=== PATIENT | female | born 1935 | race Caucasian/White ===

== ENCOUNTER 2016-07-18 01:15 | Inpatient (IN) | payer OTHER ==
[~2016-07-18] VITALS: Ht 149.9 cm; Wt 63.6 kg
[2016-07-18] MEDS ORDERED: KETOROLAC 15 MG INJ IV STA (01:50)
[2016-07-18] MEDS ORDERED: SOD CHLORIDE 0.9% 500 ML IV STA (01:50)
--- NOTE | 2016-07-18 02:35 | RADRPT ---
PROCEDURE: XR Chest. CLINICAL INDICATION: Trauma with concern for fracture. TECHNIQUE: Single frontal view of the chest was obtained COMPARISON: None FINDINGS: Cardiomegaly and atherosclerotic calcifications of the thoracic aorta. Hypoinflated lungs accentuat e pulmonary vascular markings. Mild left lung base atelectasis. Lungs are otherwise substantially c lear. There is no pleural effusion or pneumothorax. No evident fracture. Possible vascular calcification over the left lateral upper chest. This is n ot clear. IMPRESSION: 1. Mild left lung base atelectasis. 2. Lungs otherwise substantially clear. 3. No evident acute fracture. RPTAT: [facility] Physician Nigel Date Time Electronically viewed and signed by Physician Nigel on 07/18/2016 02:34 RS/
--- NOTE | 2016-07-18 02:38 | RADRPT ---
PROCEDURE: XR Left Hip. CLINICAL INDICATION: Trauma to the left hip with pain. TECHNIQUE: AP and frog lateral views of the left hip were performed. COMPARISON: None. FINDINGS: There is normal mineralization and alignment. No acute fracture or osseous lesion is identified. Possible remote fracture at the inferior pubic ra mus. If there is strong persistent concern for pelvic fracture consider CT examination. There are no significant degenerative changes in the hip. The soft tissues are unremarkable. Mild to moderate degenerative changes in the partially visualized left sacroiliac joint. IMPRESSION: 1. No acute fracture in the left hip. 2. If there is strong persistent concern for pelvic fracture consider CT correlation. RPTAT: [facility] Physician Nigel Date Time Electronically viewed and signed by Physician Nigel on 07/18/2016 02:38 RS/
--- NOTE | 2016-07-18 02:40 | RADRPT ---
PROCEDURE: XR Wrist. CLINICAL INDICATION: Pain. TECHNIQUE: Three views of the left wrist. COMPARISON: None available. FINDINGS: There is a nondisplaced intra-articular fracture of the distal radius. Moderate degenerative change s are noted at the base of the thumb. IMPRESSION: 1. Nondisplaced intra-articular fracture of the distal radius. RPTAT: HTAR .Perry Webb MD, MD Date Time Electronically viewed and signed by .Perry Webb MD, on 07/18/2016 02:39 .R/
[2016-07-18 03:00] LABS: ADD SCAN DIFF NO
[2016-07-18 03:01] LABS: BASOPHILS % 0.3 % (0.0-2.0); EOSINOPHILS % 0.3 % (0.0-7.0); HEMATOCRIT 29.4 % (37.0-47.0); HEMOGLOBIN 10.4 g/dl (12.0-16.0); LYMPHOCYTES # 0.7 10^3/ul (0.8-2.9); LYMPHOCYTES % 11.5 % (15.0-51.0); MEAN CORPUSCULAR HEMOGLOBIN 29.6 pg (29.0-33.0); MEAN CORPUSCULAR HGB CONC 35.4 g/dl (32.0-37.0); MEAN CORPUSCULAR VOLUME 83.8 fl (82.0-101.0); MEAN PLATELET VOLUME 9.8 fl (7.4-10.4); MONOCYTE # 0.5 10^3/ul (0.3-0.9); MONOCYTES % 7.9 % (0.0-11.0); NEUTROPHIL # 4.6 10^3/ul (1.6-7.5); NEUTROPHILS % 79.7 % (39.0-77.0); PLATELET COUNT 183 10^3/UL (140-415); RED BLOOD COUNT 3.51 10^6/ul (4.20-5.40); RED CELL DISTRIBUTION WIDTH 12.3 % (11.5-14.5); WHITE BLOOD COUNT 5.7 10^3/ul (4.8-10.8)
[2016-07-18] MEDS ORDERED: IBUP-1542 PO (03:03)
[2016-07-18 03:11] LABS: POTASSIUM 3.9 mmol/L (3.5-5.1)
--- NOTE | 2016-07-18 03:11 | ERD ---
ER Documentation Chief Complaint Date/Time DATE: 07/18/16 TIME: 03:07 Chief Complaint PT C/O LEFT SIDE/HIP PAIN S/P [facility] FALL EARLIER TODAY HPI 80-year-old woman brought in by EMS after mechanical fall while walking down the sidewalk. She injured her left hip and left wrist. She does recall the entire episode and denies loss of consciousness, she was able to ambulate after the fall without difficulty. She denies paresis or paresthesias, no head or neck injury, no chest pain or shortness of breath. ROS All systems reviewed and are negative except as per history of present illness. Medications Home Meds Active Scripts Ibuprofen* (Ibuprofen*) 600 Mg Tablet, 600 MG PO Q8 for PAIN AND/OR INFLAMMATION , #30 TAB Prov:MONA DE DIOS MD 07/18/16 PMhx/Soc Hypertension, arthritis History of Surgery: Yes (HYSTERECTOMY) Hx Cardiac Disorders: Yes (HTN) Hx Alcohol Use: No Hx Substance Use: No Hx Tobacco Use: No Smoking Status: Never smoker FmHx Family History: diabetes Physical Exam Vitals Vital Signs Date Time Temp Pulse Resp B/P Pulse Ox O2 Delivery O2 Flow Rate FiO2 07/18/16 05:10 76 18 139/76 97 07/18/16 03:00 73 18 138/79 100 Room Air 07/18/16 01:24 98.1 73 16 160/84 100 Physical Exam GENERAL: Well-developed, well-nourished, well-hydrated, in no apparent distress , looks nontoxic in appearance HEENT: Moist mucous membranes, pink conjunctiva, no cervical spine tenderness or step-off deformities, no goiter, no jaundice or icterus, extraocular movements intact without pain. No submandibular induration, and no pharyngeal erythema NEURO: Alert and oriented 3, cranial nerves II through XII intact bilaterally, pupils equal round reactive to light, no focal deficits or facial asymmetry, sensation intact distally Strength 5/5 in upper and lower extremities bilaterally CARDIAC: Regular rate and rhythm, no murmurs rubs or gallops LUNGS: Clear bilaterally no wheezing crackles or stridor ABDOMEN: Soft nontender, no guarding, no rigidity, no rebound, no psoas sign no obturator sign. Normoactive bowel sounds SKIN: Warm and dry to touch, positive soft tissue contusion to the left lateral hip and left dorsal wrist, no snuffbox tenderness to touch, sensation in the median, radial, ulnar nerves are intact and equal bilaterally EXTREMITIES: No clubbing cyanosis or edema, calves are bilaterally symmetrical, no Homans sign, no popliteal cord sign. Distal pulses equal and bilateral PSYCH: Normal affect without agitation or irritability Result Diagram: 07/18/1622907/18/16229 Results 24 hrs Laboratory Tests Test 07/18/16 02:30 White Blood Count 5.710^3/ul Red Blood Count 3.5110^6/ul Hemoglobin 10.4g/dl Hematocrit 29.4% Mean Corpuscular Volume 83.8fl Mean Corpuscular Hemoglobin 29.6pg Mean Corpuscular Hemoglobin Concent 35.4g/dl Red Cell Distribution Width 12.3% Platelet Count 76275^3/UL Mean Platelet Volume 9.8fl Neutrophils % 79.7% Lymphocytes % 11.5% Monocytes % 7.9% Eosinophils % 0.3% Basophils % 0.3% Nucleated Red Blood Cells % 0.0/100WBC Neutrophils # 4.610^3/ul Lymphocytes # 0.710^3/ul Monocytes # 0.510^3/ul Eosinophils # 0.010^3/ul Basophils # 0.010^3/ul Nucleated Red Blood Cells # 0.010^3/ul Sodium Level 139mmol/L Potassium Level 3.9mmol/L Chloride Level 101mmol/L Carbon Dioxide Level 28mmol/L Anion Gap 14 Blood Urea Nitrogen 20mg/dl Creatinine 1.11mg/dl Glucose Level 195mg/dl Calcium Level 9.7mg/dl Current Medications Medications (Trade) Dose Ordered Sig/Jer Route PRN Reason Start Time Stop Time Status Last Admin Dose Admin Sodium Chloride (NS) 500 ml @ 500 mls/hr Q1H STAT IV 07/18/16 01:50 07/18/16 02:49 DC 07/18/16 02:33 Ketorolac Tromethamine (Toradol) 15 mg ONCE STAT IV 07/18/16 01:50 07/18/16 01:52 DC 07/18/16 02:33 Procedures/[facility] IV line was established patient was placed on lunchroom monitor rhythm strip revealed a sinus rhythm at about 80 bpm with upright P and T waves. Patient was afebrile. I administered Toradol 50 mg IV with good response and 500 cc of normal saline intravenously. One AP view of the chest performed, read by me reveals no acute infiltrates, normal mediastinum, sharp costophrenic and cardiac borders, no air under the diaphragm. Otherwise unremarkable chest x-ray. X-ray left hip 2V Interpreted by me: Bones: No fracture Joints: No dislocation Foreign body: None X-ray left wrist 3V Interpreted by me: Scaphoid: Normal Bones: Positive intra-articular fracture of the distal radius with minimal displacement, no angulation Joints: No dislocation Foreign body: None CBC and electrolytes are normal, liver function tests are normal, urine analysis was negative for infection. Volar wrist splint was placed to the left upper extremity and wrapped with Mauricio elastic bandage for comfort and supportive measures. Splint Assessment: Neurovascularly intact post splint placement with good fit. X-ray left knee 3V Interpreted by me: Bones: No fracture Joints: No dislocation Foreign body: None Patient does have difficulty ambulating although I do not suspect that this requires inpatient management, we will obtain social work specialist evaluation for recommendations on outpatient management, referrals, and possibly facilitating a walker for her to use at home. CT scan of the left lower extremity has also been ordered to rule out fracture results are pending I will follow-up. Differential diagnoses considered, included but not limited to acute coronary syndrome, pulmonary embolism, aortic dissection, abdominal aortic aneurysm, sepsis, stroke, meningitis, encephalitis, pneumonia, appendicitis, cholecystitis , bowel obstruction, pyelonephritis, nephrolithiasis, cystitis, as well as metabolic, hematologic, and electrolyte abnormalities. As well as abscess, cellulitis, fractures, and dislocations. Patient feels much better at this time, and vital signs are normal, symptoms have improved. I did give strict instructions to return to the ED if symptoms continue or worsen, patient will otherwise follow-up with primary care physician. Patient understood instructions and agreed to plan. Departure Diagnosis: Primary Impression: Radius fracture Encounter type: initial encounter Radius location: distal Fracture type: closed Fracture morphology: other intra-articular Laterality: left Qualified Code: S52.572A - Other closed intra-articular fracture of distal end of left radius, initial encounter Additional Impression: Contusion, hip Encounter type: initial encounter Laterality: left Qualified Code: S70.02XA - Contusion of left hip, initial encounter Condition: Good Patient Instructions: Fracture, Wrist [General] MONA DE DIOS MD Jul 18, 2016 03:11
[2016-07-18 03:14] LABS: CREATININE 1.11 mg/dl (0.44-1.00)
[2016-07-18 03:15] LABS: CALCIUM 9.7 mg/dl (8.4-10.2)
--- NOTE | 2016-07-18 07:09 | RADRPT ---
PROCEDURE: XR Knee. CLINICAL INDICATION: Left knee pain. Rule out fracture. TECHNIQUE: 3 views of the left knee are available for review. COMPARISON: None available FINDINGS: Severe narrowing of the medial compartment of the left knee is seen. Moderate narrowing of the late ral compartment of the left knee is seen. There is narrowing of the patellofemoral joint as well. There is significant associated osteophyte formation as well. Findings are consistent with signific ant osteoarthritic degenerative changes of the left knee. No acute fracture or dislocation is seen. No radiopaque foreign body is identified. Alignment remains anatomic. Atherosclerotic vascular ca lcifications. Tiny suprapatellar joint effusion is present. IMPRESSION: 1. 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 2. No definite acute fracture or dislocation is seen. RPTAT: PP .Pa Crowe MD, Date Time Electronically viewed and signed by .Pa Crowe MD, on 07/18/2016 07:09 .B/
--- NOTE | 2016-07-18 07:14 | RADRPT ---
PROCEDURE: CT left hip without contrast CLINICAL INDICATION: Trauma TECHNIQUE: Spiral CT images through the left hip without the use of contrast. Multiplanar reconst ructions. The total exam CTDI equals 18.19 mGy and the total exam DLP equals 329.64 mGy-cm. . One or more of the following dose reduction techniques were used: automated exposure control, adjustment of the mA and/or kV according to patient size, or use of iterative reconstruction technique. COMPARISON: X-rays from earlier FINDINGS: Vacuum phenomena is seen in the left sacroiliac joint. Bone mineralization is decreased. There are nondisplaced fractures of the left superior and inferior pubic rami. No definite hip fracture. Th ere is mild degenerative change of the left hip with slight joint space narrowing. Small fat-contai liu left inguinal hernia. Arterial vascular calcification. Adductor musculature edema. IMPRESSION: Nondisplaced left superior inferior pubic rami fractures with adductor musculature edema. RPTAT: [facility]BE Physician Moris Date Time Electronically viewed and signed by So Villalobos Physician on 07/18/2016 07:14 LE/
[2016-07-18 07:58] VITALS: TEMP 98.1
[2016-07-18] MEDS ORDERED: ACETAMINOPHEN 325 MG TAB PO PRN ×2 (08:00→09:00)
[2016-07-18] MEDS ORDERED: ONDANSETRON 4 MG INJ IV PRN ×2 (08:00→09:00)
[2016-07-18 08:15] VITALS: BP 161/72; PULSE 63; RESP 17
[2016-07-18 08:55] VITALS: Ht 149.9 cm; Wt 63.6 kg
[2016-07-18] MEDS ORDERED: NACL 0.9% 3 ML SYG IV SCH (09:00)
[2016-07-18] MEDS ORDERED: MAGNESIUM HYDROXIDE 30ML CUP PO PRN (09:00)
[2016-07-18] MEDS ORDERED: HYDROCODONE/APAP (5/325) TAB PO PRN (09:00)
[2016-07-18] MEDS ORDERED: NA PHOSPHATE/BIPHOS 133 ML ENEMA PR PRN (09:00)
[2016-07-18] MEDS ORDERED: DOCUSATE SODIUM 100 MG CAP PO PRN (09:00)
[2016-07-18] MEDS ORDERED: NITROGLYCERIN (SL) 0.4 MG TAB SL PRN (09:00)
[2016-07-18] MEDS ORDERED: ALBUTEROL/IPRATROPIUM (NEB) 3 ML AMP HHN PRN (09:00)
[2016-07-18] MEDS ORDERED: hydrALAzine 20 MG INJ IV PRN (09:00)
[2016-07-18] MEDS ORDERED: LORAZEPAM 2 MG INJ IV PRN (09:00)
[2016-07-18] MEDS ORDERED: morphine 2 MG INJ IV PRN (09:00)
[2016-07-18 09:29] VITALS: BP 147/66; PULSE 77
[2016-07-18] MEDS: SOD CHLORIDE 0.45% 1,000 ML IV SCH ×2 (09:29→21:52)
[2016-07-18 09:52] LABS: ADD UMIC NO; URINE BILIRUBIN (Dip) NEGATIVE (NEGATIVE); URINE BLOOD (Dip) NEGATIVE (NEGATIVE); URINE COLOR LT. YELLOW (YELLOW); URINE GLUCOSE (Dip) NEGATIVE (NEGATIVE); URINE KETONES (Dip) NEGATIVE (NEGATIVE); URINE LEUKOCYTE ESTERASE (Dip) NEGATIVE (NEGATIVE); URINE NITRITE (Dip) NEGATIVE (NEGATIVE); URINE TOTAL PROTEIN (Dip) NEGATIVE (NEGATIVE); URINE UROBILINOGEN (Dip) 0.2 E.U./dL (0.1-1.0)
[2016-07-18 11:54] LABS: INR 1.01; PARTIAL THROMBOPLASTIN TIME 28.3 Sec (25.0-35.0); PROTIME 13.3 Sec (12.2-14.2)
[2016-07-18] MEDS ORDERED: GLUCOSE GEL 15 GRAM TUBE BUCCAL PRN (13:00)
[2016-07-18] MEDS ORDERED: GLUCOSE GEL 15 GRAM TUBE PO PRN ×2 (13:00)
[2016-07-18] MEDS ORDERED: DEXTROSE 50% 50 ML SYRINGE IV PRN ×2 (13:00)
[2016-07-18] MEDS ORDERED: GLUCAGON 1 MG INJ IM PRN (13:00)
[2016-07-18] MEDS ORDERED: SOLI10TA5 PO (13:46)
[2016-07-18] MEDS ORDERED: CHOL100062 PO (13:47)
[2016-07-18] MEDS ORDERED: CALC-459 PO (13:47)
[2016-07-18] MEDS ORDERED: FER325 PO (13:49)
[2016-07-18] MEDS ORDERED: CLON0.5T4 PO (13:49)
[2016-07-18] MEDS ORDERED: CLON-379 PO (13:49)
[2016-07-18] MEDS ORDERED: SITA25TA3 PO (13:50)
[2016-07-18] MEDS ORDERED: LISI-313 PO (13:51)
[2016-07-18] MEDS ORDERED: ATEN-51 PO (13:53)
[2016-07-18] MEDS ORDERED: CRES10 PO (13:55)
--- NOTE | 2016-07-18 14:57 | HP ---
DATE OF ADMISSION: 07/18/2016 CHIEF COMPLAINT: Left wrist and pelvic pain due to recent mechanical fall. HISTORY OF PRESENT ILLNESS: This is a 80-year-old female with reported past medical history of hype rtension and diabetes, hysterectomy, skin cancer and hernia repair who came to [facility] after suffering from a mechanical fall. According to the patient, [place] afternoon on 07/17/2016 when she lost her balance and fell. Sh e denied any loss of consciousness or any headaches or any chest pain or shortness of breath associa rambo with it. She simply states that she lost her balance and fell. She did fall on her left side a nd started to have progressive pain. She was still reported able to ambulate; however, despite pain . She did go to [facility] for further evaluation. Upon examination, she did hav e left wrist x-ray that did show nondisplaced intra-articular fracture of the distal radius. Hip x- ray did show shorter have no acute fracture in the left hip, but there was strong persistent suggest ion of pelvic fracture. She did have further delineation with CT scan of her pelvis. It did show a nondisplaced left superior and inferior pubic rami fracture with abductor musculature edema. Her l aboratory work, she was noted with acute kidney injury with creatinine at 1.11. She did also have s ome anemia which is being currently worked up. Currently, the patient is alert and oriented. No ap parent distress seen. She does still report having some left groin pain, likely secondary to the re cent fall. We will evaluate her for the aforementioned issues. MEDICAL AND SURGICAL HISTORY: 1. Hypertension. 2. Reported history of diabetes. 3. Hernia repair. 4. Hysterectomy. 5. Skin cancer (on right upper arm as well as leg). SOCIAL HISTORY: The patient denies any cigarette smoking, alcohol consumption or illicit drug use. FAMILY HISTORY: Noncontributory. ALLERGIES: NO KNOWN ALLERGIES. HOME MEDICATIONS: Ibuprofen 600 mg p.o. t.i.d. as needed for pain. REVIEW OF SYSTEMS: A 12-point review of systems obtained and is entirely negative except that menti oned in the history of present illness. PHYSICAL EXAMINATION VITAL SIGNS: Temperature is 98.1, pulse 63, respiratory rate is 17, blood pressure is 147/66 and pu lse ox is 96% on room air. GENERAL: This is a 80-year-old female, appears stated age, no apparent distress noted at this time . EYES: Pupils equal, round and reactive to light. Anicteric sclerae. NECK: Supple, nontender, no JVD. CARDIOVASCULAR: S1, S2 auscultated, regular rate. PULMONARY: Clear to auscultation bilaterally. No wheezing or rhonchi. ABDOMEN: Soft, nontender, nondistended. EXTREMITIES: No noted edema of bilateral lower extremities. There is seen in the left upper extrem ity in Mauricio wrap cast, dressing clean, dry and intact. NEUROLOGIC: Alert and oriented x3. LABORATORY DATA: WBC is 5.7, hemoglobin 10.4, hematocrit is 29.4 and platelets are 183. Sodium 139 , potassium 3.9, BUN is 20, creatinine is 1.11. IMAGIN. CT scan of the left hip did show nondisplaced left superior inferior pubic rami fractures with _ ____ musculature edema. 2. Left wrist x-ray on 07/18/2016 did show a nondisplaced intra-articular fracture of the distal ra dius. 3. Chest x-ray done on 07/18/2016 did show mild left lung base atelectasis but otherwise substantia lly clear. IMPRESSION AND PLAN: 1. Pubic nondisplaced rami fracture secondary to recent fall. Orthopedic surgeon consulted. We wi ll get sprayer operator consult for possible operative clearance. Of note, patient had no loss of consc iousness during fall. No need for syncope workup at this time. 2. Nondisplaced left radial fracture. Continue with at this time. 3. History of hypertension. Will provide with antihypertensives and adjust as needed. 4. History of diabetes. We will follow up on A1c. We will place on insulin sliding scale for now. ADMISSION PROCESS TIME: 40 minutes. Discussed plan of care with Dr. Silva. Dictated By: MEGAN CAREY NP for LUCY ACUÑA/EMILY Conf#: [id number] DID#: [id number] CC: LUCY SILVA;*EndCC*
[2016-07-18] MEDS ORDERED: INSULIN ASPART [NOVOLOG] 3 ML PEN SC SCH ×2 (17:55→21:00)
[2016-07-18 19:16] VITALS: BP 154/76; RESP 16
[2016-07-18] MEDS: INSULIN ASPART [NOVOLOG] 3 ML PEN SC SCH (20:47)
--- NOTE | 2016-07-18 20:58 | CONS ---
DATE OF ADMISSION: 07/18/2016 DATE OF CONSULTATION: 07/18/2016 TYPE OF CONSULTATION: Orthopedic surgical. HISTORY OF PRESENT ILLNESS: The patient is a 80-year-old female who was admitted through the emerge ncy room on 07/18/2016 when she came to the emergency room complaining of pain involving her left wr ist and left hip. According to the patient, she had a ground level fall on 07/17/2016 when she lost her balance at the sidewalk. At that time, she fell on her left side. Initially, she was able to get up and walk; however, she had increasing pain and she came to the emergency room. She is known to have hypertension, diabetes mellitus, history of hysterectomy, and history of hernia repair in the past. She also had a skin cancer on the right upper extremity and leg. PHYSICAL EXAMINATION: My examination revealed a 80-year-old female who was not in any acute distres s. Her left wrist is immobilized in a splint. There was no local tenderness or swelling around the left hip; however, there was a mild tenderness in the left groin. There was no abnormal rotation o r shortening of the left lower extremity. There was tenderness and swelling and limit of motion of the left wrist. IMAGING: X-rays of the hip and pelvis did not show any obvious fracture; however, CT scan was showi ng an undisplaced fracture involving left inferior pubic ramus. X-rays of the left wrist is showing a presence of fracture in the distal end of the left radius with out any displacement. DIAGNOSTIC IMPRESSION: 1. Pelvic fracture involving the left inferior pubic ramus, undisplaced, and possibly left superior pubic ramus, according to the CT report. 2. Fracture involving the distal end of the left radius, undisplaced. RECOMMENDATIONS FOR MANAGEMENT: 1. Immobilization of the left wrist in a cock-up wrist brace over the left wrist. 2. Mobilization with physical therapy with a walker and weightbearing as tolerated on the left lowe r extremity. 3. If the ambulation is well tolerated, then she can be discharged for further followup as an outpa tient. Dictated By: VELASQUEZ RODARTE/EMILY Conf#: [id number] DID#: [id number] CC: LUCY SILVA;*EndCC*
[2016-07-18] MEDS: clonAZEPAM 0.5 MG TAB PO SCH (21:54)
[2016-07-18] MEDS: SOLIFENACIN 5 MG TAB PO SCH (21:55)
[2016-07-18 23:01] VITALS: BP 143/68; PULSE 82; RESP 18
[2016-07-19] MEDS ORDERED: ACCU-CHEK XX SCH (02:00)
[2016-07-19] MEDS: ACCU-CHEK XX SCH (02:00)
[2016-07-19 05:25] LABS: ADD SCAN DIFF NO
[2016-07-19 05:29] LABS: BASOPHILS % 0.4 % (0.0-2.0); EOSINOPHILS # 0.2 10^3/ul (0.0-0.5); EOSINOPHILS % 3.2 % (0.0-7.0); HEMATOCRIT 28.5 % (37.0-47.0); HEMOGLOBIN 9.5 g/dl (12.0-16.0); LYMPHOCYTES % 20.2 % (15.0-51.0); MEAN CORPUSCULAR HEMOGLOBIN 28.4 pg (29.0-33.0); MEAN CORPUSCULAR HGB CONC 33.3 g/dl (32.0-37.0); MEAN CORPUSCULAR VOLUME 85.3 fl (82.0-101.0); MEAN PLATELET VOLUME 10.2 fl (7.4-10.4); MONOCYTE # 0.5 10^3/ul (0.3-0.9); MONOCYTES % 10.8 % (0.0-11.0); NEUTROPHIL # 3.1 10^3/ul (1.6-7.5); PLATELET COUNT 160 10^3/UL (140-415); RED BLOOD COUNT 3.34 10^6/ul (4.20-5.40); RED CELL DISTRIBUTION WIDTH 12.7 % (11.5-14.5); WHITE BLOOD COUNT 4.7 10^3/ul (4.8-10.8)
[2016-07-19 05:38] LABS: POTASSIUM 4.1 mmol/L (3.5-5.1)
[2016-07-19 05:40] LABS: CREATININE 1.26 mg/dl (0.44-1.00)
[2016-07-19 05:41] LABS: CALCIUM 8.8 mg/dl (8.4-10.2); PHOSPHORUS 3.4 mg/dl (2.5-4.9)
[2016-07-19 05:42] LABS: CHOL/HDL RATIO 3.8 RATIO; MAGNESIUM 1.9 mg/dl (1.7-2.5)
[2016-07-19] MEDS ORDERED: PANTOPRAZOLE 40 MG INJ IV SCH (06:00)
[2016-07-19 06:12] LABS: THYROID STIMULATING HORMONE 3.84 MIU/L (0.465-4.680)
[2016-07-19] MEDS: clonAZEPAM 0.5 MG TAB PO SCH ×3 (08:38→20:13)
[2016-07-19] MEDS: INSULIN ASPART [NOVOLOG] 3 ML PEN SC SCH ×4 (08:42→20:17)
[2016-07-19 08:54] VITALS: BP 134/65; RESP 18
[2016-07-19] MEDS ORDERED: SOLIFENACIN 5 MG TAB PO SCH (09:00)
--- NOTE | 2016-07-19 10:28 | PN ---
Date/Time of Note Date/Time of Note DATE: 07/19/16 TIME: 10:28 Assessment/Plan VTE Prophylaxis VTE Prophylaxis Intervention: SCD's Lines/Catheters IV Catheter Type (from Nrs): Saline Lock Urinary Cath still in place: No Assessment/Plan Assessment/Plan 1. Pubic nondisplaced rami fracture secondary to recent fall. Orthopedic surgeon consulted. We will get under cutter consult for possible operative clearance. Of note, patient had no loss of consciousness during fall. No need for syncope workup at this time. 2. Nondisplaced left radial fracture. Continue with at this time. 3. History of hypertension. Will provide with antihypertensives and adjust as needed. 4. History of diabetes. We will follow up on A1c. We will place on insulin sliding scale for now. Plan: still needs better pain control IVF NS x 1 liter ambulate home meds resume s/p ortho consult will follow up Subjective 24 Hr Interval Summary Free Text/Dictation still c/o left hip pain intractable with ambulatio, feelign dizzy with ambulation Exam/Review of Systems Vital Signs Vitals Vital Signs Date Time Temp Pulse Resp B/P Pulse Ox O2 Delivery O2 Flow Rate FiO2 07/19/16 08:54 98.0 68 18 134/65 94 07/18/16 23:01 Room Air Intake and Output 07/18/16 07/18/16 07/19/16 15:00 23:00 07:00 Intake Total 1050 ml 785 ml Output Total 500 ml 650 ml Balance 550 ml 135 ml Exam GENERAL: This is a 80-year-old female, appears stated age, no apparent distress noted at this time. EYES: Pupils equal, round and reactive to light. Anicteric sclerae. NECK: Supple, nontender, no JVD. CARDIOVASCULAR: S1, S2 auscultated, regular rate. PULMONARY: Clear to auscultation bilaterally. No wheezing or rhonchi. ABDOMEN: Soft, nontender, nondistended. EXTREMITIES: No noted edema of bilateral lower extremities. There is seen in the left upper extremity in Mauricio wrap cast, dressing clean, dry and intact. NEUROLOGIC: Alert and oriented x3. Results Result Diagram: 07/19/16 0425 07/19/16 0425 Results 24 hrs Laboratory Tests Test 07/18/16 11:25 07/18/16 17:12 07/18/16 20:46 07/19/16 04:25 Prothrombin Time 13.3 Prothrombin Time Ratio 1.0 INR International Normalized Ratio 1.01 Activated Partial Thromboplast Time 28.3 Bedside Glucose 171 132 White Blood Count 4.7 L Red Blood Count 3.34 L Hemoglobin 9.5 L Hematocrit 28.5 L Mean Corpuscular Volume 85.3 Mean Corpuscular Hemoglobin 28.4 L Mean Corpuscular Hemoglobin Concent 33.3 Red Cell Distribution Width 12.7 Platelet Count 160 Mean Platelet Volume 10.2 Neutrophils % 65.0 Lymphocytes % 20.2 Monocytes % 10.8 Eosinophils % 3.2 Basophils % 0.4 Nucleated Red Blood Cells % 0.0 Neutrophils # 3.1 Lymphocytes # 1.0 Monocytes # 0.5 Eosinophils # 0.2 Basophils # 0.0 Nucleated Red Blood Cells # 0.0 Sodium Level 136 Potassium Level 4.1 Chloride Level 105 Carbon Dioxide Level 28 Anion Gap 7 L Blood Urea Nitrogen 21 H Creatinine 1.26 H Glucose Level 172 Hemoglobin A1c 7.0 H Calcium Level 8.8 Phosphorus Level 3.4 Magnesium Level 1.9 Triglycerides Level 141 Cholesterol Level 124 LDL Cholesterol, Calculated 64 HDL Cholesterol 32 L Cholesterol/HDL Ratio 3.8 Thyroid Stimulating Hormone (TSH) 3.840 Test 07/19/16 08:07 Bedside Glucose 177 Medications Medications Current Medications Ondansetron HCl (Zofran Inj) 4 mg Q6H PRN IV NAUSEA AND/OR VOMITING; Start 07/18 at 09:00 Acetaminophen (Tylenol Tab) 650 mg Q6H PRN PO PAIN LEVEL 1-3 OR FEVER; Start at 09:00 Acetaminophen/ Hydrocodone Bitart ([place] (5/325)) 1 tab Q6H PRN PO MODERATE PAIN LEVEL 4-6 Last administered on 07/19/16t 05:32; Admin Dose 1 TAB; Start 07/18 at 09:00 Morphine Sulfate (morphine) 2 mg Q4H PRN IV SEVERE PAIN LEVEL 7-10; Start at 09:00 Docusate Sodium (Colace) 100 mg Q12H PRN PO CONSTIPATION; Start 07/18/16 at 09: 00 Magnesium Hydroxide (Milk Of Mag) 30 ml DAILY PRN PO CONSTIPATION; Start at 09:00 Sodium Biphosphate/ Sodium Phosphate (Fleet Enema) 133 ml DAILY PRN WI CONSTIPATION; Start 07/18/16 at 09:00 Pantoprazole (Protonix Iv) 40 mg DAILY@06 IV Last administered on 07/19/16 05: 26; Admin Dose 40 MG; Start 07/19/16 at 06:00 Lorazepam (Ativan) 0.5 mg Q6H PRN IV ANXIETY; Start 07/18/16 at 09:00 Hydralazine HCl (Apresoline) 10 mg Q6H PRN IV ELEVATED BLOOD PRESSURE; Start at 09:00 Clonidine (Catapres) 0.1 mg Q6H PRN PO ELEVATED BLOOD PRESSURE; Start 07/18/16 at 09:00 Nitroglycerin (Nitroglycerin (Sl Tab) 0.4 Mg) 1 tab Q5M PRN SL ANGINA; Start at 09:00 Miscellaneous Information 1 ea NOTE XX ; Start 07/18/16 at 13:00 Glucose (Glutose) 15 gm Q15M PRN PO DECREASED GLUCOSE; Start 07/18/16 at 13:00 Glucose (Glutose) 22.5 gm Q15M PRN PO DECREASED GLUCOSE; Start 07/18/16 at 13:00 Dextrose (D50w Syringe) 25 ml Q15M PRN IV DECREASED GLUCOSE; Start 07/18/16 at 13:00 Dextrose (D50w Syringe) 50 ml Q15M PRN IV DECREASED GLUCOSE; Start 07/18/16 at 13:00 Glucagon (Glucagen) 1 mg Q15M PRN IM DECREASED GLUCOSE; Start 07/18/16 at 13:00 Glucose (Glutose) 15 gm Q15M PRN BUCCAL DECREASED GLUCOSE; Start 07/18/16 at 13: 00 Diagnostic Test (Pha) (Accu-Chek) 1 ea 02 XX ; Start 07/19/16 at 02:00 Clonazepam (Klonopin) 0.5 mg TID PO Last administered on 07/19/16 08:38; Admin Dose 0.5 MG; Start 07/18/16 at 22:00 Clonidine (Catapres) 0.1 mg BID PO Last administered on 07/19/16 08:38; Admin Dose 0.1 MG; Start 07/18/16 at 22:00 Solifenacin (Vesicare) 10 mg HS PO Last administered on 4/2/17at 21:55; Admin Dose 10 MG; Start 07/18/16 at 22:00 CAMILLA BOUDREAUX MD Jul 19, 2016 10:28
[2016-07-19] MEDS: FERROUS SULFATE (EC) 325 MG TAB PO SCH (10:52)
[2016-07-19] MEDS: CHOLECALCIFEROL 1,000 UNIT TAB PO SCH (10:52)
[2016-07-19 10:53] VITALS: BP 111/59; PULSE 69
[2016-07-19] MEDS: ATENOLOL 25 MG TAB PO SCH (10:53)
[2016-07-19] MEDS: LISINOPRIL 5 MG TAB PO SCH (10:53)
[2016-07-19] MEDS ORDERED: SOD CHLORIDE 0.9% 1,000 ML IV SCH (11:00)
[2016-07-19] MEDS: IBUPROFEN 600 MG TAB PO SCH ×2 (14:00→20:52)
--- NOTE | 2016-07-19 14:02 | RADRPT ---
Echocardiogram Report Patient Name: TERRY LEAL Gender: Female Date: 1935 Study Date: 18-Jul-2016 Windows Application Developer: ANNE Location: I Ref. Physician: LUCY SILVA Quality: Adequate Procedures: Transthoracic echocardiogram with complete 2D, M-Mode, and Doppler examination. Indications: Chest Pain. 2D/M Mode Doppler Measurement Value Normal Ranges Measurement Value Normal Ranges AoR Diam MM 3.5 cm AV Peak [place] 1.2 m/sec LVIDd 2D 4.5 3.5 - 5.6 cm AV Peak PG 6.1 mmHg LVIDs 2D 2.7 2.1 - 4.1 cm LVOT Peak [place] 1.2 m/sec LVPWd 2D 1.1 0.6 - 1.1 cm LVOT Peak PG 5.3 mmHg IVSd 2D 1.1 0.6 - 1.1 cm MV E Peak [place] 0.6 m/sec EDV 2D 90.7 cm3 MV A Peak [place] 0.8 m/sec ESV 2D 20.6 cm3 MV E/A 0.8 LA Dimen 2D 3.4 2.3 - 4.0 cm MV Decel Time 205 msec MV Decel [place] 3 MV E/A 0.8 TR Peak [place] 1.4 m/sec TR Peak PG 8.0 mmHg PV Peak [place] 0.9 m/sec PV Peak PG 3.0 mmHg RVSP 11.0 mmHg Findings Left Ventricle: Normal left ventricular systolic function. Normal left ventricular cavity size. Normal left ventricular wall thickness. Ejection fraction is visually estimated at 6065 %. Tissue Doppler/Mitral Doppler indices are consistent with impaired relaxation (Stage I diastolic dysfunction). E/E`=8. Right Ventricle: Normal right ventricular size. Normal right ventricular systolic function. Left Atrium: The left atrium is normal in size. Right Atrium: The right atrium is normal in size. Atrial Septum: Normal atrial septum. Mitral Valve: Normal appearance and function of the mitral valve with trace physiologic regurgitation. Aortic Valve: No significant aortic stenosis or insufficiency. Aortic cusps appear mildly calcified. Tricuspid Valve: Normal appearance and function of the tricuspid valve with trace physiologic regurgitation. Estimated peak PA systolic pressure 11 mmHg. Pulmonic Valve: Normal pulmonic valve appearance. There is trace pulmonic regurgitation. Pericardium: Normal pericardium with no significant pericardial effusion. Aorta: Normal aortic root. IVC: Normal size and normal respiratory collapse consistent with normal right atrial pressure. Pulmonary Artery: Normal pulmonary artery size. Conclusions The left ventricle is normal in size and systolic function. Estimated left ventricular ejection fraction of 60-65%. Mild left ventricular diastolic dysfunction. Electronically Signed By: Gulshan Butler 19-Jul-2016 14:01:40 -0700 Patient Name: TERRY LEAL Study Date: 18-Jul-2016 [id number]
[2016-07-19 19:45] VITALS: BP 139/71; RESP 16
[2016-07-19] MEDS: SOLIFENACIN 5 MG TAB PO SCH (20:13)
[2016-07-20] MEDS: ACCU-CHEK XX SCH (02:00)
[2016-07-20 05:20] LABS: ADD SCAN DIFF NO
[2016-07-20 05:36] LABS: BASOPHILS % 0.4 % (0.0-2.0); EOSINOPHILS # 0.2 10^3/ul (0.0-0.5); EOSINOPHILS % 4.2 % (0.0-7.0); LYMPHOCYTES % 20.7 % (15.0-51.0); MEAN CORPUSCULAR HEMOGLOBIN 28.7 pg (29.0-33.0); MEAN CORPUSCULAR HGB CONC 33.3 g/dl (32.0-37.0); MEAN CORPUSCULAR VOLUME 86.2 fl (82.0-101.0); MEAN PLATELET VOLUME 10.4 fl (7.4-10.4); MONOCYTE # 0.4 10^3/ul (0.3-0.9); MONOCYTES % 9.1 % (0.0-11.0); NEUTROPHIL # 3.1 10^3/ul (1.6-7.5); NEUTROPHILS % 65.4 % (39.0-77.0); PLATELET COUNT 166 10^3/UL (140-415); RED BLOOD COUNT 3.48 10^6/ul (4.20-5.40); RED CELL DISTRIBUTION WIDTH 12.8 % (11.5-14.5); WHITE BLOOD COUNT 4.7 10^3/ul (4.8-10.8)
[2016-07-20] MEDS: IBUPROFEN 600 MG TAB PO SCH ×3 (06:00→21:21)
[2016-07-20 06:01] LABS: POTASSIUM 4.1 mmol/L (3.5-5.1)
[2016-07-20 06:04] LABS: CREATININE 1.21 mg/dl (0.44-1.00)
[2016-07-20 06:05] LABS: CALCIUM 9.4 mg/dl (8.4-10.2)
[2016-07-20] MEDS: PANTOPRAZOLE (EC) 40 MG TAB PO SCH (06:16)
[2016-07-20 07:54] VITALS: BP 169/77; RESP 18
[2016-07-20] MEDS: FERROUS SULFATE (EC) 325 MG TAB PO SCH (09:00)
[2016-07-20] MEDS: LISINOPRIL 5 MG TAB PO SCH (09:00)
[2016-07-20] MEDS: CHOLECALCIFEROL 1,000 UNIT TAB PO SCH (09:00)
[2016-07-20] MEDS: ATENOLOL 25 MG TAB PO SCH (09:00)
[2016-07-20] MEDS: INSULIN ASPART [NOVOLOG] 3 ML PEN SC SCH ×4 (09:05→20:18)
[2016-07-20] MEDS: clonAZEPAM 0.5 MG TAB PO SCH ×3 (09:05→20:18)
--- NOTE | 2016-07-20 17:09 | PN ---
Date/Time of Note Date/Time of Note DATE: 07/20/16 TIME: 17:07 Assessment/Plan VTE Prophylaxis VTE Prophylaxis Intervention: SCD's Lines/Catheters IV Catheter Type (from Nrs): Saline Lock Urinary Cath still in place: No Assessment/Plan Assessment/Plan 1. Pubic nondisplaced rami fracture secondary to recent fall. Orthopedic surgeon consulted. We will get time study statistician consult for possible operative clearance. Of note, patient had no loss of consciousness during fall. No need for syncope workup at this time. 2. Nondisplaced left radial fracture. Continue with at this time. 3. History of hypertension. Will provide with antihypertensives and adjust as needed. 4. History of diabetes. We will follow up on A1c. We will place on insulin sliding scale for now. Plan: still needs better pain control s/p 1liter NS yesterday S/p PT evaluation today, recommended to have SNF placement pain control case management consutl for SNF placement Subjective 24 Hr Interval Summary Free Text/Dictation doing ok, BP stable, Pt had a PT and she is recommended to have SNF placement Exam/Review of Systems Vital Signs Vitals Vital Signs Date Time Temp Pulse Resp B/P Pulse Ox O2 Delivery O2 Flow Rate FiO2 07/20/16 07:54 98.1 64 18 169/77 93 07/18/16 23:01 Room Air Intake and Output 07/19/16 07/19/16 07/20/16 15:00 23:00 07:00 Intake Total 1160 ml 660 ml Output Total 550 ml 950 ml Balance 610 ml -290 ml Exam GENERAL: This is a 80-year-old female, appears stated age, no apparent distress noted at this time. EYES: Pupils equal, round and reactive to light. Anicteric sclerae. NECK: Supple, nontender, no JVD. CARDIOVASCULAR: S1, S2 auscultated, regular rate. PULMONARY: Clear to auscultation bilaterally. No wheezing or rhonchi. ABDOMEN: Soft, nontender, nondistended. EXTREMITIES: No noted edema of bilateral lower extremities. There is seen in the left upper extremity in Mauricio wrap cast, dressing clean, dry and intact. NEUROLOGIC: Alert and oriented x3. Results Result Diagram: 07/20/16 0436 07/20/16 0436 Results 24 hrs Laboratory Tests Test 07/19/16 17:12 07/19/16 20:11 07/20/16 01:51 07/20/16 04:36 Bedside Glucose 144 186 182 White Blood Count 4.7 L Red Blood Count 3.48 L Hemoglobin 10.0 L Hematocrit 30.0 L Mean Corpuscular Volume 86.2 Mean Corpuscular Hemoglobin 28.7 L Mean Corpuscular Hemoglobin Concent 33.3 Red Cell Distribution Width 12.8 Platelet Count 166 Mean Platelet Volume 10.4 Neutrophils % 65.4 Lymphocytes % 20.7 Monocytes % 9.1 Eosinophils % 4.2 Basophils % 0.4 Nucleated Red Blood Cells % 0.0 Neutrophils # 3.1 Lymphocytes # 1.0 Monocytes # 0.4 Eosinophils # 0.2 Basophils # 0.0 Nucleated Red Blood Cells # 0.0 Sodium Level 138 Potassium Level 4.1 Chloride Level 103 Carbon Dioxide Level 26 Anion Gap 13 Blood Urea Nitrogen 24 H Creatinine 1.21 H Glucose Level 174 Calcium Level 9.4 Test 07/20/16 08:32 07/20/16 12:12 Bedside Glucose 149 236 H Medications Medications Current Medications Ondansetron HCl (Zofran Inj) 4 mg Q6H PRN IV NAUSEA AND/OR VOMITING; Start 07/18 at 09:00 Acetaminophen (Tylenol Tab) 650 mg Q6H PRN PO PAIN LEVEL 1-3 OR FEVER; Start at 09:00 Acetaminophen/ Hydrocodone Bitart ([place] (5/325)) 1 tab Q6H PRN PO MODERATE PAIN LEVEL 4-6 Last administered on 07/19/16t 05:32; Admin Dose 1 TAB; Start 07/18 at 09:00 Morphine Sulfate (morphine) 2 mg Q4H PRN IV SEVERE PAIN LEVEL 7-10; Start at 09:00 Docusate Sodium (Colace) 100 mg Q12H PRN PO CONSTIPATION; Start 07/18/16 at 09: 00 Magnesium Hydroxide (Milk Of Mag) 30 ml DAILY PRN PO CONSTIPATION; Start at 09:00 Sodium Biphosphate/ Sodium Phosphate (Fleet Enema) 133 ml DAILY PRN [place] CONSTIPATION; Start 07/18/16 at 09:00 Lorazepam (Ativan) 0.5 mg Q6H PRN IV ANXIETY; Start 07/18/16 at 09:00 Hydralazine HCl (Apresoline) 10 mg Q6H PRN IV ELEVATED BLOOD PRESSURE; Start at 09:00 Clonidine (Catapres) 0.1 mg Q6H PRN PO ELEVATED BLOOD PRESSURE; Start 07/18/16 at 09:00 Nitroglycerin (Nitroglycerin (Sl Tab) 0.4 Mg) 1 tab Q5M PRN SL ANGINA; Start at 09:00 Miscellaneous Information 1 ea NOTE XX ; Start 07/18/16 at 13:00 Glucose (Glutose) 15 gm Q15M PRN PO DECREASED GLUCOSE; Start 07/18/16 at 13:00 Glucose (Glutose) 22.5 gm Q15M PRN PO DECREASED GLUCOSE; Start 07/18/16 at 13:00 Dextrose (D50w Syringe) 25 ml Q15M PRN IV DECREASED GLUCOSE; Start 07/18/16 at 13:00 Dextrose (D50w Syringe) 50 ml Q15M PRN IV DECREASED GLUCOSE; Start 07/18/16 at 13:00 Glucagon (Glucagen) 1 mg Q15M PRN IM DECREASED GLUCOSE; Start 07/18/16 at 13:00 Glucose (Glutose) 15 gm Q15M PRN BUCCAL DECREASED GLUCOSE; Start 07/18/16 at 13: 00 Diagnostic Test (Pha) (Accu-Chek) 1 ea 02 XX ; Start 07/19/16 at 02:00 Clonazepam (Klonopin) 0.5 mg TID PO Last administered on 07/20/16 09:05; Admin Dose 0.5 MG; Start 07/18/16 at 22:00 Clonidine (Catapres) 0.1 mg BID PO Last administered on 07/20/16 09:01; Admin Dose 0.1 MG; Start 07/18/16 at 22:00 Solifenacin (Vesicare) 10 mg HS PO Last administered on 07/19/16 20:13; Admin Dose 10 MG; Start 07/18/16 at 22:00 Atenolol (Tenormin) 25 mg DAILY PO Last administered on 07/20/16 09:00; Admin Dose 25 MG; Start 07/19/16 at 10:30 Cholecalciferol (Vitamin D) 2,000 unit DAILY PO Last administered on 07/20/16 09:00; Admin Dose 2,000 UNIT; Start 07/19/16 at 10:30 Ferrous Sulfate (Ferrous Sulfate (Ec)) 325 mg DAILY PO Last administered on 07/20 09:00; Admin Dose 325 MG; Start 07/19/16 at 10:30 Ibuprofen (Motrin) 600 mg Q8 PO Last administered on 07/20/16 15:01; Admin Dose 600 MG; Start 07/19/16 at 14:00 Lisinopril (Zestril) 5 mg DAILY PO Last administered on 07/20/16 09:00; Admin Dose 5 MG; Start 07/19/16 at 10:30 Pantoprazole (Protonix Tab) 40 mg DAILY@06 PO Last administered on 07/20/16 06: 16; Admin Dose 40 MG; Start 07/20/16 at 06:00 CAMILLA BOUDREAUX MD Jul 20, 2016 17:09
[2016-07-20 20:16] VITALS: BP 152/70; PULSE 88; RESP 18
[2016-07-20] MEDS: SOLIFENACIN 5 MG TAB PO SCH (20:18)
[2016-07-21] MEDS: ACCU-CHEK XX SCH (02:40)
[2016-07-21 05:11] LABS: ADD SCAN DIFF NO
[2016-07-21 05:26] LABS: BASOPHILS % 0.8 % (0.0-2.0); EOSINOPHILS # 0.2 10^3/ul (0.0-0.5); HEMATOCRIT 29.2 % (37.0-47.0); HEMOGLOBIN 9.9 g/dl (12.0-16.0); LYMPHOCYTES # 1.1 10^3/ul (0.8-2.9); LYMPHOCYTES % 26.7 % (15.0-51.0); MEAN CORPUSCULAR HEMOGLOBIN 28.9 pg (29.0-33.0); MEAN CORPUSCULAR HGB CONC 33.9 g/dl (32.0-37.0); MEAN CORPUSCULAR VOLUME 85.1 fl (82.0-101.0); MEAN PLATELET VOLUME 10.2 fl (7.4-10.4); MONOCYTE # 0.4 10^3/ul (0.3-0.9); MONOCYTES % 10.3 % (0.0-11.0); NEUTROPHIL # 2.3 10^3/ul (1.6-7.5); NEUTROPHILS % 56.9 % (39.0-77.0); PLATELET COUNT 158 10^3/UL (140-415); RED BLOOD COUNT 3.43 10^6/ul (4.20-5.40); RED CELL DISTRIBUTION WIDTH 12.7 % (11.5-14.5)
[2016-07-21] MEDS: IBUPROFEN 600 MG TAB PO SCH ×2 (06:04→13:18)
[2016-07-21] MEDS: PANTOPRAZOLE (EC) 40 MG TAB PO SCH (06:04)
[2016-07-21 06:14] LABS: POTASSIUM 4.1 mmol/L (3.5-5.1)
[2016-07-21 06:16] LABS: CREATININE 1.22 mg/dl (0.44-1.00)
[2016-07-21 06:17] LABS: CALCIUM 9.4 mg/dl (8.4-10.2)
[2016-07-21 08:11] VITALS: BP 145/69; RESP 20
[2016-07-21] MEDS: CHOLECALCIFEROL 1,000 UNIT TAB PO SCH (09:17)
[2016-07-21] MEDS: ATENOLOL 25 MG TAB PO SCH (09:17)
[2016-07-21] MEDS: clonAZEPAM 0.5 MG TAB PO SCH ×2 (09:18→13:18)
[2016-07-21] MEDS: LISINOPRIL 5 MG TAB PO SCH (09:18)
[2016-07-21] MEDS: FERROUS SULFATE (EC) 325 MG TAB PO SCH (09:18)
[2016-07-21] MEDS: INSULIN ASPART [NOVOLOG] 3 ML PEN SC SCH ×3 (09:19→19:00)
--- NOTE | 2016-07-21 13:31 | PDOCDIS ---
Discharge Instructions CONDITION Patient Condition: Good HOME CARE INSTRUCTIONS: Diet Instructions: Low Fat /CholesterolSpecial Diet: DM diet ACTIVITY: Activity Restrictions: Slowly Increase Activity Rest between Activity Avoid heavy lifting Do not Drive Do not operate Machinery Do not operate Power Tool Avoid Heavy Housework Bathing Restrictions: Shower FOLLOW UP/APPOINTMENTS Appointments Follow up with orthopedic in 2 weeks SRINATH RUSSO MD Jul 21, 2016 13:31
--- NOTE | 2016-07-21 14:33 | DS ---
DATE OF ADMISSION: 07/19/2016 DATE OF DISCHARGE: 07/21/2016 CONSULTANTS: Dr. Rhonda Mariee PROCEDURES: None. A 2D echocardiogram demonstrated left ventricle normal size and systolic function, estimated left ve ntricular ejection fraction 60% to 65%, mild left ventricular diastolic dysfunction. DISCHARGE DIAGNOSES: 1. Pubic nondisplaced rami fracture secondary to recent fall. Orthopedic surgeon was consulted. N o surgical intervention required as per orthopedic surgeon. 2. Recent fall. PT and OT evaluate and treat. Fall precautions. 3. Nondisplaced left radial fracture in a soft cast. 4. History of hypertension. Continue medical management. 5. Diabetes mellitus. Continue Januvia. 6. Anxiety. Continue clonazepam. 7. Vitamin D deficiency. Continue vitamin D supplementation. 8. Dyslipidemia. Continue Crestor. DISPOSITION: To long-term facility. MEDICATIONS: 1. Compazine. 2. Tylenol. 3. Percocet. 4. Aspirin 81 mg. 5. Atenolol 25 mg 6. Vitamin D 1000 mg. 7. Clonazepam 0.5 mg. 8. Clonidine 0.1 mg. 9. Colace 100 mg. 10. Ferrous sulfate 325 mg. 11. Lisinopril 5 mg. 12. Nitroglycerin 0.4 mg. 13. Protonix 40 mg. 14. Calcium carbonate 500 mg. 15. VESIcare 10 mg. 16. Crestor 10 mg 17. Januvia 25 mg. DIET: Low carb cardiac diet. ACTIVITY: PT, OT evaluate and treat, weightbearing as tolerated. FOLLOWUP: Follow up with orthopedic surgeon in 2 weeks. DISPOSITION: To long-term facility. LABORATORY DATA: WBC 4.0, hemoglobin 9.9, hematocrit 29.2, platelets 158. Sodium 138, potassium 4. 1, chloride 103, bicarbonate 26, BUN 29, creatinine 1.22, glucose 166, calcium 9.4. Hemoglobin A1c 7.0. Triglyceride 141, total cholesterol 124, LDL 64, HDL 32. TSH 3.84. VITAL SIGNS: Temperature 97.8, pulse 61, respiration 20, blood pressure 144/69, oxygen 97%. HOSPITAL COURSE: This is a 80-year-old female with past medical history of hypertension, diabetes m ellitus, hysterectomy, skin cancer, hernia repair, and anxiety who presented to [facility] secondary to having a mechanical fall. According to the patient, [place], on 07/17/2016 when she lost her balance and fell. She denies having loss of consciousness or any headache, chest pain, or shortness of breath. She simply stated that she l ost her balance and fell. She did fall on her left side and started to have progressive pain in her hip. She was able to ambulate, however, with the exclude excruciating pain. She presented to [facility]. Left x-ray did show nondisplaced intraocular fracture of the distal radiu s. Hip x-ray showed no acute fracture of the left hip, but there was ____ suggest pelvic fracture. The patient had a CT of the hip which demonstrated a nondisplaced left superior inferior pubic rami fracture with abductor musculature edema. Orthopedic surgeon was consulted. As per his evaluation , there was no surgical intervention. The patient was place in immobilization of left wrist with co ckup wrist brace over the left wrist and mobilization with physical therapy with a walker, weightbea ring as tolerated on the left lower extremity. If the patient is able to ambulate, the patient shou ld be discharged home. The patient continues to have pain; therefore, the patient will be transferr ed to long-term facility. For her history of hypertension, her blood pressure is well controlled on atenolol and lisinopril wi th clonidine. For diabetes mellitus, the patient was placed on insulin sliding scale, low-carbohydr ate diet. For her anxiety, the patient was placed on clonazepam. The patient, at this time, is med ically stable to be discharged to long-term facility. As per orthopedic surgeon, the patient also has been cleared. No surgical intervention needed. Follow with orthopedic surgeon in 2 weeks. Dictated By: SRINATH RUSSO MD PN/NTS Conf#: [id number] DID#: [id number] CC: [facility];*EndCC*
[2016-07-21 19:03] VITALS: BP 157/68; PULSE 62; RESP 20
== END 2016-07-21 19:20 | DRG 563 ==
LOC: E/R 01:15 → MS1 07:38 → INTOOBSV 07:38 → OBSVTOIN 07-19 10:29 → UNDODISIN 07-21 19:20
PROVIDERS: ADMIT Hospitalist; ATTEND Hospitalist
PROC: 2W3DX1Z Immobilization of Left Lower Arm using Splint (ICD-10-PCS; principal; 2016-07-19)
DX: S52.572A Other intraarticular fracture of lower end of left radius, initial encounter for closed fracture (principal); S32.592A Other specified fracture of left pubis, initial encounter for closed fracture; W19.XXXA Unspecified fall, initial encounter; Y93.01 Activity, walking, marching and hiking; Y92.480 Sidewalk as the place of occurrence of the external cause
CPT/HCPCS: 36415; 71010; 73510; 73562; 73700; 80048; 80061; 81003; 82962; 83036; 83735; 84100; 84439; 84443; 85025; 85610; 85730; 87086; 92610; 93306; 96374; 97116; 97162; 97530; C9113; G0378; J1815; J1885; J7030; J7040

== ENCOUNTER 2017-11-29 19:47 | Emergency (ER) | END 2017-11-29 23:32 | disposition home or self-care (01) ==

== ENCOUNTER 2018-01-29 13:28 | Emergency (ER) | END 2018-01-29 15:07 | disposition home or self-care (01) ==

== ENCOUNTER 2018-08-08 13:57 | Emergency (ER) | payer OTHER ==
[~2018-08-08] VITALS: Ht 152.4 cm; Wt 63.5 kg
[~2018-08-08 13:57] MED LIST: ATEN-51 PO; AZIT500T2 PO; CALC-459 PO; CHOL100062 PO; CLON-379 PO; CLON0.5T14 PO; FER325 PO; IBUP-1561 PO; LISI-313 PO; PROM25TA14 PO; RSV10T PO; SITA25TA3 PO; SOLI10TA2 PO
[2018-08-08 14:02] VITALS: Ht 152.4 cm; Wt 63.5 kg
[2018-08-08] MEDS ORDERED: ACETAMINOPHEN 500 MG TAB PO STA (15:20)
[2018-08-08] MEDS ORDERED: CEPHALEXIN 500 MG CAP PO ONE (17:00)
[2018-08-08] MEDS ORDERED: CEPH-443 PO (17:03)
[2018-08-08] MEDS ORDERED: ACET500C5 PO (17:03)
--- NOTE | 2018-08-08 17:06 | ERD ---
ER Documentation Chief Complaint Chief Complaint pt is bib self with c/o left sided neck pain for a few days getting worse HPI 82-year-old female presents with pain in the left side of her neck for the last 3 days patient has a history of trauma, or inciting events. She denies chest pain, shortness of breath, fevers, abdominal pain, weakness, or deficits. ROS All systems reviewed and are negative except as per history of present illness. Medications Home Meds Active Scripts Cephalexin* (Keflex*) 500 Mg Capsule, 500 MG PO BID for 7 Days, CAP Prov:RYAN YANES MD 08/08/18 Acetaminophen* (Tylophen*) 500 Mg Capsule, 1 CAP PO Q6H PRN for PAIN AND OR ELEVATED TEMP, #20 CAP Prov:RYAN YANES MD 08/08/18 Azithromycin* (Zithromax* Tri-Oh) 500 Mg Tablet, 500 MG PO DAILY for 3 Days, TAB Prov:MONA THORNTON MD 01/29/18 Promethazine Hcl* (Phenergan*) 25 Mg Tablet, 25 MG PO Q6 PRN for COUGH, #10 TAB Prov:MONA THORNTON MD 01/29/18 Ibuprofen* (Motrin*) 400 Mg Tab, 400 MG PO Q6H PRN for PAIN AND OR ELEVATED TEMP, #30 TAB Prov:TAMIKA RAMIREZ NP 11/29/17 Reported Medications Rosuvastatin Calcium* (Crestor*) 10 Mg Tablet, 10 MG PO QHS, TAB 07/18/16 Atenolol* (Atenolol*) 25 Mg Tablet, 25 MG PO DAILY, TAB 07/18/16 Lisinopril* (Lisinopril*) 5 Mg Tablet, 5 MG PO DAILY, TAB 07/18/16 Sitagliptin* (Januvia*) 25 Mg Tablet, 25 MG PO DAILY, TAB 07/18/16 Ferrous Sulfate* (Ferrous Sulfate*) 325 Mg Tabec, 325 MG PO DAILY, TAB 07/18/16 Clonazepam* (Clonazepam*) 0.5 Mg Tablet, 0.5 MG PO TID, TAB 07/18/16 Clonidine Hcl* (Clonidine Hcl*) 0.1 Mg Tab, 0.1 MG PO BID, TAB 07/18/16 Cholecalciferol* (Vitamin D3*) 1,000 Unit Tablet, 2000 UNIT PO DAILY, TAB 07/18/16 Calcium Carbonate (Calcium Carbonate) 500 Mg Tab.chew, 500 MG PO BID, TAB 07/18/16 Solifenacin* (Vesicare*) 10 Mg Tablet, 10 MG PO DAILY, TAB 07/18/16 Allergies Allergies: Coded Allergies: No Known Allergy (Unverified , 07/18/16) PMhx/Soc History of Surgery: Yes (HERNIA AND GALLBLADDER SX YEARS AGO) Anesthesia Reaction: No Hx Neurological Disorder: Yes (NEUROPATHY IN BOTH FEET) Hx Respiratory Disorders: No Hx Cardiac Disorders: Yes (HTN) Hx Psychiatric Problems: No Hx Miscellaneous Medical Probl: Yes (DM) Hx Alcohol Use: No Hx Substance Use: No Hx Tobacco Use: No Smoking Status: Never smoker Physical Exam Vitals Vital Signs Date Temp Pulse Resp B/P (MAP) Pulse Ox O2 O2 Flow FiO2 Time Delivery Rate 08/08/18 37.8 16:04 08/08/18 100.1 78 18 176/83 98 14:02 (114) Physical Exam Const: No acute distress Head: Atraumatic Eyes: Normal Conjunctiva ENT: Normal External Ears, Nose and Mouth. Neck: Full range of motion. No meningismus. Tenderness in the left cervical paraspinous muscle areas and left anterior spinous muscle areas. No exquisite midline tenderness or deformities. Resp: Clear to auscultation bilaterally Cardio: Regular rate and rhythm, no murmurs Abd: Soft, non tender, non distended. Normal bowel sounds Skin: No petechiae or rashes Back: No midline or flank tenderness Ext: No cyanosis, or edema Neur: Awake and alert Psych: Normal Mood and Affect Result Diagram: 08/08/18 1553 08/08/18 1601 Results 24 hrs Laboratory Tests Test 08/08/18 15:53 08/08/18 16:01 White Blood Count 6.2 10^3/ul Red Blood Count 4.11 10^6/ul Hemoglobin 11.6 g/dl Hematocrit 34.8 % Mean Corpuscular Volume 84.7 fl Mean Corpuscular Hemoglobin 28.2 pg Mean Corpuscular Hemoglobin Concent 33.3 g/dl Red Cell Distribution Width 12.6 % Platelet Count 229 10^3/UL Mean Platelet Volume 9.7 fl Immature Granulocytes % 0.300 % Neutrophils % 80.4 % Lymphocytes % 9.7 % Monocytes % 8.3 % Eosinophils % 1.0 % Basophils % 0.3 % Nucleated Red Blood Cells % 0.0 /100WBC Immature Granulocytes # 0.020 10^3/ul Neutrophils # 5.0 10^3/ul Lymphocytes # 0.6 10^3/ul Monocytes # 0.5 10^3/ul Eosinophils # 0.1 10^3/ul Basophils # 0.0 10^3/ul Nucleated Red Blood Cells # 0.0 10^3/ul Urine Color YELLOW Urine Clarity SLIGHTLY CLOUDY Urine pH 5.0 Urine Specific [place] 1.015 Urine Ketones NEGATIVE mg/dL Urine Nitrite NEGATIVE mg/dL Urine Bilirubin NEGATIVE mg/dL Urine Urobilinogen NEGATIVE mg/dL Urine Leukocyte Esterase TRACE Alvarez/ul Urine Microscopic RBC 2 /HPF Urine Microscopic WBC 7 /HPF Urine Squamous Epithelial Cells FEW /HPF Urine Bacteria FEW /HPF Urine Mucus FEW /HPF Urine Hemoglobin NEGATIVE mg/dL Urine Glucose NEGATIVE mg/dL Urine Total Protein NEGATIVE mg/dl Sodium Level 139 mmol/L Potassium Level 4.0 mmol/L Chloride Level 102 mmol/L Carbon Dioxide Level 30 mmol/L Anion Gap 7 Blood Urea Nitrogen 20 mg/dl Creatinine 1.20 mg/dl Est Glomerular Filtrat Rate mL/min mL/min Glucose Level 172 mg/dl Calcium Level 10.6 mg/dl Troponin I < 0.012 ng/ml Current Medications Medications Dose Sig/Jer Start Time Status Last (Trade) Ordered Route PRN Stop Time Admin Dose Reason Admin 500 mg ONCE STAT 08/08/18 DC 08/08/18 Acetaminophen PO 15:20 16:04 (Tylenol 08/08/18 15:22 Tab) Cephalexin 500 mg ONCE ONCE 08/08/18 DC 08/08/18 (Keflex) PO 17:00 16:55 08/08/18 17:01 Procedures/MDM Patient presents with left-sided neck pain which is nontraumatic. X-ray C spine 3V Interpreted by me: Bones: No fracture Joints: No dislocation Foreign body: None impression-severe degenerative changes otherwise no fracture or dislocation. Carotid atherosclerosis. Chest X-ray 1V Interpreted by me: Soft Tissue: No acute abnormalities Bones: No acute abnormalities Mediastinum/Cardiac Silhouette/Lungs: No acute abnormalities. Impression- normal 1 view chest x-ray EKG: Rate/Rhythm: Normal Sinus Rhythm. Rate equals 68 QRS, ST, T-waves: No changes consistent w/ acute ischemia Impression: No evidence of ischemia or arrhythmia. Impression-nonspecific ST changes. Patient has a low-grade temperature triage. CBC shows no leukocytosis. There is mild elevation of creatinine. Urine shows white blood cells and leukocyte esterase. Patient was given Keflex 500 mg by mouth. She was given Tylenol as well for pain. Troponin negative. Patient presents with neck pain of uncertain etiology which is nontraumatic for last 3 days. Is likely due to the degenerative changes or musculoskeletal pain. She has no signs or symptoms of coronary artery disease. She does have a low- grade temperature we will treat for the findings of mild UTI. She has no signs or symptoms to suggest sepsis, ill appearance, additional concerning signs or symptoms. She discharged home with Tylenol, Keflex, recommendations for primary care follow-up and return precautions for fevers, vomiting, abdominal pain, new worsening symptoms. The patient was stable with no new complaints during the ER course. Clinically, there is no current evidence to suggest meningitis, sepsis, acute abdomen, pneumonia, stroke, acute coronary syndrome, pulmonary embolism, aortic dissection or any other emergent condition appearing to require further evaluation or hospitalization. Patient counseled regarding my diagnostic impression and care plan. Prior to discharge all questions answered. Pt agrees with treatment plan and understands strict return precautions. Pt is instructed to follow up with primary care provider within 24-48 hours. Precautionary instructions provided including instructions to return to the ER if not improving or for any worsening or changing symptoms or concerns. Departure Diagnosis: Primary Impression: UTI (urinary tract infection) Urinary tract infection type: acute cystitis Hematuria presence: without hematuria Qualified Codes: N30.00 - Acute cystitis without hematuria Additional Impression: Neck pain Condition: Stable Patient Instructions: Understanding Urinary Tract Infections (UTIs), Neck Pain, No Trauma Additional Instructions: Arthritis seen in neck, likely because of pain. You have signs of urinary tract infection and we will treat for this. Additional studies normal today. Drink plenty of fluids at home. Recheck for fevers, vomiting, new or worsening symptoms with primary care doctor. RYAN YANES MD Aug 08, 2018 17:06
[2018-08-08 17:27] VITALS: BP 140/67; PULSE 72; RESP 18
== END 2018-08-08 17:28 | disposition home or self-care (01) ==
LOC: FTE 13:57
DX: N30.00 Acute cystitis without hematuria (principal); I10 Essential (primary) hypertension; E11.9 Type 2 diabetes mellitus without complications; Z79.84 Long term (current) use of oral hypoglycemic drugs
CPT/HCPCS: 71045; 72040; 80048; 81001; 84484; 85025; 93005